=== PATIENT | female | born 2000 | race Caucasian/White ===

== ENCOUNTER 2024-05-28 15:42 | Emergency (ER) | payer OTHER, SELFPAY ==
[2024-05-28 15:48] VITALS: BP 127/83
--- NOTE | 2024-05-28 16:21 | ED.GENMED ---
History of Present Illness
General
Chief Complaint: Rabies
Source: patient
Exam Limitations: none
Time Seen by Provider: 05/28/24 16:04
Nursing documentation reviewed up to this point in time: agreed with
History of Present Illness
History of Present Illness:
24-year-old female presenting to the emergency department after bat exposure. Patient states that her and her woke up Sunday evening at 2 AM and there was a bat flying around the bed room. No known bite or exposure to saliva. Patient's
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 Patient asymptomatic. No other concerns.
Patient does have allergy to antibiotics although denies any known reactions to vaccinations in the past.
Past History
Past History
ED Past Medical History: Asthma and Other (seasonal allergies)
Social History
Tobacco: Non-smoker
Personal: Single
Living: with family
Review of Systems
Review of Systems
Allergies reviewed?: Yes
All Other Systems: ROS reviewed and negative except as documented in HPI and ROS
Phy Exam
Physical Exam
Physical Exam:
Vitals: Patient's vital signs are stable. Afebrile
General: Patient is well appearing, no acute distress
Skin: Warm and dry, no rashes or lesions. No bites.
Head: Normocephalic, atraumatic
Eyes: Sclera nonicteric. EOMs intact. No nystagmus.
Throat: Protecting airway
Neck: Normal ROM, no cervical spine tenderness, no meningismus
Cardiac: Regular rate and rhythm, no murmurs.
Pulm: Normal respiratory effort, no wheezes, rales, rhonchi heard on exam.
Abdomen: No abdominal tenderness.
Extremities: No evidence of cyanosis or edema
Neuro: AAOx3. CN II-XII intact. No focal neurologic deficits.
Psychiatric: Normal affect.
Course
Orders/Labs/Results
Orders:
Orders
05/28/24 16:35
Rabies Immune Globulin/Pf [HyperRAB] 900 unit IM NOW STA
05/28/24 16:45
Rabies Vaccine (Pcec)/Pf [Rabavert Rabies Vacc W-Diluent] 2.5 unit IM .ONCE ONE
Vital Signs
Initial and Last Documented VS:
Initial Vital Signs
Temp Pulse Resp BP Pulse Ox
98.2 F 73 16 127/83 99
05/28/24 15:48 05/28/24 15:48 05/28/24 15:48 05/28/24 15:48 05/28/24 15:48
Last Documented Vital Signs
Temp Pulse Resp BP Pulse Ox
98.2 F 73 16 127/83 99
05/28/24 15:48 05/28/24 15:48 05/28/24 15:48 05/28/24 15:48 05/28/24 15:48
MDM/Problems Addressed
Differential Diagnosis Includes:
Not limited to: Need for rabies prophylaxis
MDM/Problems Addressed:
24-year-old female presenting for rabies vaccination series following bat exposure. Bat was seen flying around bedroom 2 nights ago when she awoke at 2 AM. No known bite or exposure to saliva. No prior history of rabies vaccination. Vital signs
stable. Exam as above. Patient very well-appearing, no apparent distress. No visible bite. Will initiate rabies vaccination series. Patient received rabies immunoglobulin and first dose of rabies vaccination in emergency department today.
Patient will schedule with infusion center for remaining 3 dose of rabies vaccine. Patient tolerated vaccinations well. Return precautions discussed. Patient discharged in stable condition. Case discussed with attending physician.
Chronic conditions affecting care:
N/A
Acute Exacerbation and/or Progression of Chronic Illness:
N/A
*Pulse Oximetry
Patient hypoxic: no
*EKG
Interpreted by ED Provider?: NA
*Machine Tech Interpretation
Rate: Machine Tech- N/A
*Critical Care Note
Total Time (30-74mins, 75-104mins- exclusive of procedures): Not Applicable
ED Attending Note
-
Portions of this chart may have been created with voice recognition software.� Occasional wrong word or��sound alike� substitutions may have occurred due to the inherent limitations of voice recognition software.
Discharge Plan
Departure
Patient Disposition: Home (Routine Discharge)
Date of Disposition: 05/28/24
Time of Disposition: 16:25
Patient with high blood pressure during this ER visit?: No
Condition: Good
Covid-19: Not Applicable
Discharge Problem:
Rabies, need for prophylactic vaccination against
Instructions: Rabies
Prescriptions:
New
RabAvert (PF) 2.5 unit suspension for reconstitution
2.5 unit IM ONCE Qty: 3 0RF
Rx Instructions:
Inject 2.5 units IM on 05/30/24, 06/04/24, and 06/11/24
No Action
budesonide [Rhinocort Allergy] 8.43 ML spray,non-aerosol
8.43 ml NS DAILY
fluticasone propion-salmeterol [Advair Diskus] 1 EACH blister with device
1 ea IH DAILY
cetirizine 10 MG tablet
10 mg PO DAILY
Stand Alone Forms: Rabies Vaccine Post Exp Dosing
Activity Restrictions/Additional Instructions:
RETURN TO THE EMERGENCY DEPARTMENT WITH ANY FEVERS, CHILLS, SIGNIFICANT REDNESS OR SWELLING AROUND INJECTION SITES, SHORTNESS OF BREATH, OR ANY OTHER CONCERNS
-As discussed you received the rabies immunoglobulin and dose one of the Rabies vaccine series today. There are 3 additional doses of the rabies vaccine that you will need to complete the series. They should be given on 05/30/24, 06/04/24, and
06/11/24. These can be given at the infusion clinic. You should call them when you leave the emergency department today or tomorrow morning to schedule these doses.
-Follow-up with your primary care for further evaluation/management if needed
Interventions
Interventions:
*Risk Screen - Suicide Last Done: 05/28/24 15:48
*General Assessment Last Done: 05/28/24 16:01
*Neglect/Abuse Screening Last Done: 05/28/24 15:48
ED- Fall Risk Assessment Last Done: 05/28/24 16:01
*ED COVID-19 Vaccine History Last Done: 05/28/24 16:01
*Nursing Disposition Last Done: 05/28/24 17:06
Discharge Date and Time
Discharge Date/Time: 05/28/24 17:06
Print Language: PERSIAN
[2024-05-28] MEDS: RABAVERT RABIES VACC W-DILUENT 2.5 UNIT IM (17:01)
[2024-05-28] MEDS: HyperRAB 900 UNIT IM (17:01)
== END 2024-05-28 17:06 | disposition home or self-care (01) ==
LOC: EMR 15:42
PROVIDERS: EMERGENCY PHYSICIAN Emergency Medicine; FAMILY PHYSICIAN Family Medicine
DX: Z20.3 Contact with and (suspected) exposure to rabies (principal); Z23 Encounter for immunization; Z29.14 Encounter for prophylactic rabies immune globulin; J45.909 Unspecified asthma, uncomplicated
CPT/HCPCS: 99282; 90471; 96372; 90375; 90675